=== PATIENT | male | born 1955 | race Caucasian/White ===

== ENCOUNTER 2016-07-05 10:03 | Emergency (ER) | payer BC ==
[2016-07-05 10:25] VITALS: BP 143/85
[2016-07-05 11:27] LABS: CHLORIDE,CL 103 mmol/L (98-107); SODIUM,NA 139 mmol/L (136-145)
--- NOTE | 2016-07-05 15:06 | ER ---
Date of Service: 07/05/2016 SUBJECTIVE: Mr. Ely presents to the emergency room with substernal chest pain that began at approximately 4 o'clock this morning. The patient was seen at [facility] in May for chest pain. He did have an EKG which showed a left bundle branch block. The patient had not had an EKG for approximately 15 years. The patient states that approximately 15 years ago, he had a nuclear stress test of some type, but was unable to relate specifically what was done or what his diagnosis was. To note, the patient does appear to be very anxious and upset and resistive to questioning on his health history. The patient states that he be began experiencing chest discomfort approximately 4 o'clock this morning. He went to the clinic and they told him that he needed to be seen in the emergency room. The patient complains of substernal chest pain with no radiation into the jaw, arms, neck, or back. He does have a history of smoking and quit approximately 6 years ago. He is scheduled for a Cardiology consult on 07/22/2016. PAST MEDICAL HISTORY: 1. Tobacco abuse disorder. 2. Hypertension. 3. Type 2 diabetes mellitus, poorly controlled. 4. Dyslipidemia. 5. Erectile dysfunction. MEDICATIONS: 1. Aspirin 325 mg daily. 2. Diovan 320/25. 3. Cialis 20 mg daily. 4. Phentermine 37.5 mg daily. 5. Metoprolol tartrate 100 mg b.i.d. 6. Tradjenta 5 mg p.o. daily p.r.n. 7. Glucophage 1000 mg b.i.d. 8. Clonidine 0.2 mg p.o. b.i.d. 9. Norvasc 10 mg p.o. at bedtime. 10.Voltaren gel 100 g topically b.i.d. 11.Triamcinolone 0.1% ointment topically b.i.d. 12.Zocor 40 mg at bedtime. 13.Multivitamin 1 daily. 14.Flexeril 10 mg p.o. bedtime. ALLERGIES: NKDA. REVIEW OF SYSTEMS: General: Denies fever or chills. HEENT: No sore throat, rhinorrhea, or congestion. Respiratory: Denies any shortness of breath. Cardiac: Please see history of present illness. Denies any jaw, arm, neck, or back pain. Gastrointestinal: No nausea, vomiting, or diarrhea. No melena, hematochezia, or hematemesis. Genitourinary: Denies any dysuria. Musculoskeletal: No myalgias or arthralgias. Neurologic: Denies fainting, blackouts, or lightheadedness. PHYSICAL EXAMINATION: General: This is a 61-year-old male patient, in no acute distress. Vital Signs: Blood pressure is 143/85, pulse rate 66, respiratory rate is 14, O2 saturations 98%. Skin: Warm, pink, and dry. HEENT. Head is normocephalic, atraumatic. Mouth, oral mucosa is moist. Lungs: Clear to auscultation. Heart: Regular rate and rhythm. No murmurs noted. Abdomen: Soft, nontender. There is no hepatosplenomegaly noted. There are no masses noted. Musculoskeletal: He does have 1 to 2+ edema at the ankles. Neurologic: He is alert and oriented, answers all questions appropriately. His speech is fluent. His gait is within normal limits. Psychiatric: Again, the patient is quite brusque with staff on raising his voice when questioned about his past medical history and when discussing his diagnosis. His insight does appear to be normal, however. He does not appear to be experiencing any acute psychiatric abnormality, but again is quite upset with staff here in the emergency room. DIAGNOSTIC DATA: EKG was obtained showing a left bundle branch block with T- wave inversion and ST depression in the inferior leads. This was compared to his EKG from May and these are new findings. LABORATORY DATA: WBCs 4.6, hemoglobin is 11.9, platelets are 130, coag PT is 10.6, INR is 0.9. Sodium is 139, potassium is 4.2, chloride is 103, bicarbonate is 26, BUN is 29, creatinine is 1.3, GFR is 56, glucose elevated at 243, calcium is 9.0, corrected calcium is 9.32, total bilirubin is 0.6, AST is 61, ALT is 71, alkaline phosphatase is 123. CK is 89, CK-MB was 2.5. Troponin elevated at 0.43. Total protein is 7.4, albumin is 3.6. ASSESSMENT: Non ST-elevation myocardial infarction. PLAN: Discussed the findings with the patient. He had told me prior to doing any lab work that he would not be admitted to the hospital or transferred to any other facility, stating that he wanted to "follow up with a caddy packer" in July. After obtaining his labs and seeing that his troponin was elevated and seeing that his EKG showed acute change. The patient was informed that he was in fact having a myocardial infarction and did require Cardiology evaluation emergently. I stated to the patient that he should be started on heparin and nitroglycerin, and should be transferred to [facility] in [place] via ambulance, but he adamantly refused. He was raising his voice and was extremely upset and stated that he wanted to speak with Dr. Tavo Lomeli his primary care provider. Subsequently, I did contact Dr. Lomeli in the clinic, who did speak with the patient at length about the findings as well, and the patient still refused treatment at our facility. He was informed that this is a potentially life-threatening problem, and that it is most important that he receive treatment as soon as possible. The patient did subsequently signed out against medical advice and was given an invitation to return to the emergency room for treatment and subsequent transfer. He stated that he was going to come back to the emergency room after he "talk to his " and would seek treatment. He was advised not to drive a motor vehicle as he has a great risk for potentially losing consciousness secondary to arrhythmia caused by cardiac ischemia. Shortly sometime after the patient was discharged, the patient's presented to the emergency room asking what his diagnosis was and had questions about his laboratory findings. I did advise her that he was in fact having experiencing non ST elevation IA. She stated that he was in the car with her and that they would go to [facility] for treatment. I did advise her that he should come into the emergency room for treatments and to be started on blood thinners and subsequent transfer via [facility] ambulance, but the patient's refused as well. I did subsequently contact [facility] to make them aware of the situation and faxed the EKG and laboratory studies as well and we will fax this emergency room note as well. All questions were answered. MWK: 07/05/2016 12:45:17 MODL: 07/05/2016 14:02:50 /[id number]
== END 2016-07-05 11:15 | disposition left against medical advice (07) ==
LOC: VM.ED 10:03
DX: I21.4 Non-ST elevation (NSTEMI) myocardial infarction (principal); I10 Essential (primary) hypertension; E11.9 Type 2 diabetes mellitus without complications; E78.5 Hyperlipidemia, unspecified; Z79.899 Other long term (current) drug therapy; Z87.891 Personal history of nicotine dependence
CPT/HCPCS: 36415; 80053; 82550; 82553; 84484; 85025; 85610; 93005; 99285